=== PATIENT | male | born 1985 | race Caucasian/White ===

== ENCOUNTER 2017-03-08 03:00 | Day surgery (SDC) | payer SELFPAY ==
[2017-03-08 03:52] VITALS: BMI 25.4
[2017-03-08] MEDS ORDERED: morphine CARPU-JECT 4 MG/1 ML DISP.SYRIN IVPUSH ONE ×2 (04:38→07:23)
[2017-03-08] MEDS ORDERED: ONDANSETRON 4 MG TABLET PO ONE (04:38)
[2017-03-08] MEDS ORDERED: SODIUM CHLORIDE 1,000 ML IV STA (04:38)
--- NOTE | 2017-03-08 04:39 | PDOC ---
History of Present Illness - General Chief Complaint: Pain Stated Complaint: PAIN/LT SIDE Time Seen by Provider: 03/08/17 03:43 - History of Present Illness Initial Comments: 03/08/17 05:25 The patient is a 31 year old male with no significant PMH who presents to the emergency department with groin pain beginning at approximately 10AM. 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 The patient denies chest pain, shortness of breath, headache, and dizziness. Denies fever, chills, nausea, vomit, diarrhea, and constipation. Denies dysuria, frequency, urgency, and hematuria. Allergies: NKA Past surgical history: None reported. Social history: No reported cigarette, alcohol, or drug use. Past History - Past Medical History Allergies/Adverse Reactions: Allergies Allergy/AdvReac Type Severity Reaction Status Date / Time No Known Allergies Allergy Verified 03/08/17 03:52 Home Medications: Ambulatory Orders Acetaminophen W/ Codeine #3 [Tylenol # 3 -] 1 - 2 tab PO Q6H PRN #22 tablet MDD 8 03/09/17 Acetaminophen [Tylenol .Regular Strength -] 650 mg PO Q6H PRN #0 tablet Docusate Sodium [Colace -] 100 mg PO BID PRN #30 capsule 03/09/17 Ibuprofen [Motrin -] 600 mg PO Q6H PRN #0 tablet 03/09/17 - Suicide/Smoking/Psychosocial Hx Smoking History: Never smoked Have you smoked in the past 12 months: No Information on smoking cessation initiated: No Hx Alcohol Use: No Drug/Substance Use Hx: No Review of Systems - Review of Systems Comments:: 03/08/17 05:26 "GENERAL/CONSTITUTIONAL: No fever or chills. No weakness. HEAD, EYES, EARS, NOSE AND THROAT: No change in vision. No ear pain or discharge. No sore throat. CARDIOVASCULAR: No chest pain or shortness of breath. RESPIRATORY: No cough, wheezing, or hemoptysis. GASTROINTESTINAL: No nausea, vomiting, diarrhea or constipation. GENITOURINARY: No dysuria, frequency, or change in urination. MUSCULOSKELETAL: (+) Left side groin pain. No joint pain. No neck or back pain. SKIN: No rash NEUROLOGIC: No headache, vertigo, loss of consciousness, or change in strength/ sensation. ENDOCRINE: No increased thirst. No abnormal weight change. HEMATOLOGIC/LYMPHATIC: No anemia, easy bleeding, or history of blood clots. ALLERGIC/IMMUNOLOGIC: No hives or skin allergy. " *Physical Exam - Vital Signs Last Vital Signs Temp Pulse Resp BP Pulse Ox 97.5 F L 75 18 107/63 100 03/08/17 03:50 03/08/17 03:50 03/08/17 03:50 03/08/17 03:50 03/08/17 03:50 - Physical Exam Comments: 03/08/17 05:26 "GENERAL: Awake, alert, and fully oriented. NAD HEAD: No signs of trauma EYES: PERRLA, EOMI, sclera anicteric, conjunctiva clear ENT: Auricles normal inspection, hearing grossly normal, nares patent, oropharynx clear without exudates. Moist mucosa NECK: Normal ROM, supple, no lymphadenopathy, JVD, or masses LUNGS: Breath sounds equal, clear to auscultation bilaterally. No wheezes, and no crackles HEART: Regular rate and rhythm, normal S1 and S2, no murmurs, rubs or gallops ABDOMEN: Soft, nontender, normoactive bowel sounds. No guarding, no rebound. No masses : (+) Left inguinal hernia, tender to palpation, not reducible. Penis and scrotum with no masses, nontender EXTREMITIES: Normal range of motion, no edema. No clubbing or cyanosis. No cords, erythema, or tenderness NEUROLOGICAL: Cranial nerves II through XII grossly intact. Normal speech, normal gait SKIN: Warm, Dry, normal turgor, no rashes or lesions noted. " ED Treatment Course - LABORATORY CBC & Chemistry Diagram: 03/08/17 04:49 03/08/17 04:49 Medical Decision Making - Medical Decision Making 03/08/17 05:26 31 M with L inguinal hernia, nonreducible at bedside. Pt with no obstructive symptoms, no nausea/vomiting. Will need CT to r/o incarcerated hernia - Labs, lactate - CTAP - IVF, morphine, zofran - Surgical consult as needed *DC/Admit/Observation/Transfer Diagnosis at time of Disposition: Inguinal hernia - Discharge Dispostion Disposition: HOME Condition at time of disposition: Good - Prescriptions
[2017-03-08 05:00] LABS: BASOPHIL 0.8 % (0-2.0); EOSINOPHIL 1.6 % (0-4.5); MCH 31.7 pg (25.7-33.7); MEAN CELL VOLUME 90.4 fl (80-96); MEAN PLT VOLUME 8.3 fl (7.5-11.1); NEUTROPHILS 63.6 % (42.8-82.8); PLATELET COUNT 221 K/MM3 (134-434); RDW 13.2 % (11.9-15.9); WHITE BLOOD COUNT 7.9 K/mm3 (4.0-10.0)
[2017-03-08] MEDS ORDERED: ONDANSETRON 4 MG/2 ML VIAL ONE (05:05)
[2017-03-08] MEDS ORDERED: morphine CARPU-JECT 4 MG/1 ML DISP.SYRIN ONE ×2 (05:05→07:25)
[2017-03-08 05:27] LABS: INR 1.04 (0.82-1.09); PROTHROMBIN TIME (PATIENT) 11.4 SEC (9.98-11.88)
[2017-03-08 05:38] LABS: ALBUMIN 3.9 g/dl (3.4-5.0); ALK PHOS 102 U/L (45-117); ANION GAP 8 (8-16); BILIRUBIN,TOTAL 0.6 mg/dL (0.2-1.0); CALCIUM 8.2 mg/dL (8.5-10.1); CO2 25 mmol/L (21-32); CREATININE 0.7 mg/dL (0.7-1.3); GLUCOSE,RANDOM 103 mg/dL (74-106); SGOT/AST 17 U/L (15-37); SGPT/ALT 32 U/L (12-78)
[2017-03-08] MEDS ORDERED: morphine CARPU-JECT 2 MG/1 ML DISP.SYRIN ONE (07:25)
--- NOTE | 2017-03-08 07:31 | PDOC ---
*Physical Exam - Vital Signs Last Vital Signs Temp Pulse Resp BP Pulse Ox 97.5 F L 75 18 107/63 100 03/08/17 03:50 03/08/17 03:50 03/08/17 03:50 03/08/17 03:50 03/08/17 03:50 - Physical Exam General Appearance: Yes: Nourished Respiratory/Chest: positive: Lungs Clear, Normal Breath Sounds Cardiovascular: positive: Regular Rhythm, Regular Rate, S1, S2 Gastrointestinal/Abdominal: positive: Normal Bowel Sounds, Flat, Soft Male Genitalia: positive: normal genitalia, other (PALP INCARCERATED LEFT INGUINAL HERNIA) Musculoskeletal: positive: Normal Inspection Extremity: positive: Normal Capillary Refill, Normal Inspection <Aline Juárez - Last Filed: 03/08/17 11:32> - Vital Signs Last Vital Signs Temp Pulse Resp BP Pulse Ox 98.3 F 87 20 130/75 98 03/08/17 07:37 03/08/17 07:37 03/08/17 07:37 03/08/17 07:37 03/08/17 07:37 <Brenton Broussard - Last Filed: 03/08/17 12:07> ED Treatment Course - LABORATORY CBC & Chemistry Diagram: 03/08/17 04:49 03/08/17 04:49 - ADDITIONAL ORDERS Additional order review: Laboratory Results 03/08/17 03/08/17 03/08/17 04:49 04:49 04:49 PT with INR 11.40 INR 1.04 PTT (Actin FS) Sodium 139 Potassium 3.7 Chloride 106 Carbon Dioxide 25 Anion Gap 8 BUN 21 H Creatinine 0.7 Creat Clearance w eGFR > 60 Random Glucose 103 Lactic Acid 1.2 Calcium 8.2 L Total Bilirubin 0.6 AST 17 ALT 32 Alkaline Phosphatase 102 Total Protein 7.0 Albumin 3.9 Blood Type Antibody Screen 03/08/17 03/08/17 04:49 04:49 PT with INR INR PTT (Actin FS) 29.7 Sodium Potassium Chloride Carbon Dioxide Anion Gap BUN Creatinine Creat Clearance w eGFR Random Glucose Lactic Acid Calcium Total Bilirubin AST ALT Alkaline Phosphatase Total Protein Albumin Blood Type O POSITIVE Antibody Screen Negative 03/08/17 04:49 RBC 5.12 MCV 90.4 MCHC 35.0 RDW 13.2 MPV 8.3 Neutrophils % 63.6 Lymphocytes % 26.9 Monocytes % 7.1 Eosinophils % 1.6 Basophils % 0.8 - Medications Given in the ED: ED Medications Discontinued Medications Generic Name Dose Route Start Last Admin Trade Name Lois PRN Reason Stop Dose Admin Sodium Chloride 1,000 mls @ 1,000 mls/hr 03/08/17 04:38 03/08/17 05:14 Normal Saline - IV 03/08/17 05:37 1,000 mls/hr ASDIR STA Administration Morphine Sulfate 4 mg 03/08/17 04:38 03/08/17 05:14 Morphine Injection - IVPUSH 03/08/17 04:39 4 mg ONCE ONE Administration Ondansetron HCl 4 mg 03/08/17 04:38 03/08/17 05:14 Zofran - PO 03/08/17 04:39 4 mg ONCE ONE Administration <Aline Juárez - Last Filed: 03/08/17 11:32> - LABORATORY CBC & Chemistry Diagram: 03/08/17 04:49 03/08/17 04:49 - ADDITIONAL ORDERS Additional order review: Laboratory Results 03/08/17 03/08/17 03/08/17 04:49 04:49 04:49 PT with INR 11.40 INR 1.04 PTT (Actin FS) Sodium 139 Potassium 3.7 Chloride 106 Carbon Dioxide 25 Anion Gap 8 BUN 21 H Creatinine 0.7 Creat Clearance w eGFR > 60 Random Glucose 103 Lactic Acid 1.2 Calcium 8.2 L Total Bilirubin 0.6 AST 17 ALT 32 Alkaline Phosphatase 102 Total Protein 7.0 Albumin 3.9 Urine Color Urine Appearance Urine pH Urine Protein Urine Glucose (UA) Urine Ketones Urine Blood Urine Nitrite Urine Bilirubin Urine Urobilinogen Blood Type Antibody Screen 03/08/17 03/08/17 03/08/17 04:49 04:49 04:37 PT with INR INR PTT (Actin FS) 29.7 Sodium Potassium Chloride Carbon Dioxide Anion Gap BUN Creatinine Creat Clearance w eGFR Random Glucose Lactic Acid Calcium Total Bilirubin AST ALT Alkaline Phosphatase Total Protein Albumin Urine Color Straw Urine Appearance Clear Urine pH 6.0 Urine Protein Negative Urine Glucose (UA) Negative Urine Ketones Negative Urine Blood Negative Urine Nitrite Negative Urine Bilirubin Negative Urine Urobilinogen Negative Blood Type O POSITIVE Antibody Screen Negative 03/08/17 04:49 RBC 5.12 MCV 90.4 MCHC 35.0 RDW 13.2 MPV 8.3 Neutrophils % 63.6 Lymphocytes % 26.9 Monocytes % 7.1 Eosinophils % 1.6 Basophils % 0.8 - Medications Given in the ED: ED Medications Discontinued Medications Generic Name Dose Route Start Last Admin Trade Name Lois PRN Reason Stop Dose Admin Sodium Chloride 1,000 mls @ 1,000 mls/hr 03/08/17 04:38 03/08/17 05:14 Normal Saline - IV 03/08/17 05:37 1,000 mls/hr ASDIR STA Administration Lorazepam 1 mg 03/08/17 07:48 03/08/17 07:56 Ativan Injection - IVPUSH 03/08/17 07:49 1 mg ONCE ONE Administration Morphine Sulfate 4 mg 03/08/17 04:38 03/08/17 05:14 Morphine Injection - IVPUSH 03/08/17 04:39 4 mg ONCE ONE Administration Morphine Sulfate 6 mg 03/08/17 07:23 03/08/17 07:36 Morphine Injection - IVPUSH 03/08/17 07:24 6 mg ONCE ONE Administration Ondansetron HCl 4 mg 03/08/17 04:38 03/08/17 05:14 Zofran - PO 03/08/17 04:39 4 mg ONCE ONE Administration Sodium Chloride 1,000 ml 03/08/17 07:48 03/08/17 07:56 Normal Saline - IV 03/08/17 07:49 1,000 ml ONCE ONE Administration <Brenton Broussard - Last Filed: 03/08/17 12:07> Progress Note - Progress Note Progress Note: EXAM: ECG Vent Rate: 54 bpm IMPRESSION: Sinus bradycardia. Otherwise normal ECG. <Brenton Broussard - Last Filed: 03/08/17 12:07> Medical Decision Making - Medical Decision Making 03/08/17 07:30 31 YO male with no pmhx here with c/o left inguinal pain, noted incarcerated hernia on exam. ct pending when assume care of pt. will consult surgery. pt with pain on my examination. surgery consults. pain medication ordered. 03/08/17 10:36 Dr. Jo evaluate pt at bedside, successfully reduced. CT with fat contents only , no bowel. pt still with some pain, but improved post reduction. will admit for hernia repair. <Aline Juárez - Last Filed: 03/08/17 11:32> - Medical Decision Making 03/08/17 07:57 First call placed to Dr. Jo at 07:34. Awaiting call back. Case discussed with Dr. Jo at 07:47. <Brenton Broussard - Last Filed: 03/08/17 12:07> *DC/Admit/Observation/Transfer - Discharge Dispostion Admit: Yes <Aline Juárez - Last Filed: 03/08/17 11:32> - Attestations Scribe Attestion: 03/08/17 07:58 Documentation prepared by Brenton Broussard, acting as medical lab director for Aline Juárez MD. <Brenton Broussard - Last Filed: 03/08/17 12:07> Diagnosis at time of Disposition: Inguinal hernia
[2017-03-08] MEDS ORDERED: SODIUM CHLORIDE 0.9% 1000 ML INFUS.BAG IV ONE (07:48)
[2017-03-08 07:49] LABS: URINE APPEARANCE CLEAR; URINE BILIRUBIN NEGATIVE (NEGATIVE); URINE BLOOD NEGATIVE (NEGATIVE); URINE COLOR STRAW; URINE GLUCOSE (UA) NEGATIVE (NEGATIVE); URINE KETONE NEGATIVE (NEGATIVE); URINE LEUK ESTERASE NEGATIVE (NEGATIVE); URINE NITRITE NEGATIVE (NEGATIVE); URINE PROTEIN NEGATIVE (NEGATIVE); URINE UROBILINOGEN NEGATIVE mg/dL (0.2-1.0)
[2017-03-08] MEDS ORDERED: LORazepam 2 MG/ML SDV VIAL ONE (07:49)
--- NOTE | 2017-03-08 10:45 | HP ---
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 He came to ER early this am, where he had normal labs including lactate 1.2, and his hernia was unable to be reduced by ER doctor. CT showed omental content with some fluid, but no obstruction or intestinal content in hernia. He has been able to void and has been given fluids. No fever, but did feel cold at one point, no n/v, no d/c. No abdominal pain, last po was 9pm last night. With supine positioning, pain medicine and ativan, cold pack, hernia had reduced by the time I saw patient. He stated pain is better than yesterday but area is still painful and tender. He wants it fixed and is agreeable to surgery. 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 #[phone]) - Past Medical History Musculoskeletal: Yes: Other (left inguinal hernia) - Past Surgical History Past Surgical History: Yes: None - Smoking History Smoking history: Current some day smoker Have you smoked in the past 12 months: Yes Aproximately how many cigarettes per day: 0 (1-2 cigars/week) - Alcohol/Substance Use Hx Alcohol Use: No History of Substance Use: reports: None - Social History Occupation: works at [email or web address] Home Medications - Allergies Allergies/Adverse Reactions: Allergies Allergy/AdvReac Type Severity Reaction Status Date / Time No Known Allergies Allergy Verified 03/08/17 03:52 - Home Medications Home Medications: Ambulatory Orders NK [No Known Home Medication] 03/08/17 Family Disease History - Family Disease History Family History: Unremarkable Review of Systems - Review of Systems Constitutional: reports: Chills ("felt cold"). denies: Fever Eyes: denies: Blurred Vision, Recent Change in Vision HENT: denies: Difficult Swallowing, Throat Pain Cardiovascular: denies: Chest Pain, Palpitations Respiratory: reports: Cough (in last few days, hurts in left groin when he coughs). denies: SOB Gastrointestinal: denies: Abdominal Pain, Constipation, Diarrhea, Nausea, Vomiting Genitourinary: denies: Burning, Dysuria Musculoskeletal: denies: Back Pain, Joint Pain, Muscle Pain Integumentary: denies: Change in Color, Rash Neurological: denies: Dizziness, Headache Psychiatric: denies: Anxiety, Depression Physical Examination Vital Signs: Vital Signs Temperature 98.3 F 03/08/17 07:37 Pulse Rate 87 03/08/17 07:37 Respiratory Rate 20 03/08/17 07:37 Blood Pressure 130/75 03/08/17 07:37 O2 Sat by Pulse Oximetry (%) 98 03/08/17 07:37 Constitutional: Yes: Well Nourished, No Distress, Calm Eyes: Yes: Conjunctiva Clear, EOM Intact HENT: Yes: Atraumatic, Nasal Congestion Neck: Yes: Supple, Trachea Midline Cardiovascular: Yes: Regular Rate and Rhythm. No: Murmur Respiratory: Yes: Regular, CTA Bilaterally Gastrointestinal: Yes: Normal Bowel Sounds, Soft, Hernia (left inguinal - reduced prior to my exam with pain control, cold pack, supine positioning; tender at site and int/ext rings, testicle nontender, no content in scrotum now but + impulse with cough; no right sided impulse with cough; no skin changes), Tenderness (mild LLQ near groin, no R/G) ...Rectal Exam: Yes: Deferred Renal/: No: Bladder Distention, Scrotal Edema Musculoskeletal: No: Back Pain, Joint Swelling Extremities: No: Cool, Cyanosis Edema: No Peripheral Pulses WNL: Yes Integumentary: No: Erythema, Rash Neurological: Yes: Alert, Oriented Psychiatric: Yes: Alert, Oriented Labs: CBC, BMP 03/08/17 04:49 03/08/17 04:49 lactate 1.2 Imaging - Results Chest X-ray: Report Reviewed Cat Scan: Report Reviewed, Image Reviewed (left inguinal hernia with fat/ omental content and some fluid, normal appendix, no free air or obstruction in abdomen) Problem List - Problems (1) Inguinal hernia of left side without obstruction or gangrene Assessment/Plan: presented with incarcerated left inguinal hernia since yesterday reduced spontaneously with rest, pain control and cold pack very tender with + impulse Discussed with patient risks, benefits and alternatives of left inguinal hernia repair with mesh, including but not limited to bleeding, infection, injury to adjacent structures including vessels or nerves, vas deferens, mesh infection, testicular ischemia or loss; alternatives include delayed or no surgery - risks of this include increased pain, incarceration or strangulation of hernia, need for emergent surgery. Patient desires to proceed with operation - will take to OR for above. Informed consent signed for same. admit 23H/satellite perioperative antibiotics resume po postop pain meds prn dvt prophylaxis - early ambulation and scd's anticipate d/c home when ambulating, voiding, pain controlled with po meds, tolerating po - later tonight or in am pt understands will have lifting restrictions for 4-6 weeks postop Code(s): K40.90 - UNIL INGUINAL HERNIA, W/O OBST OR GANGR, NOT SPCF RECUR
[2017-03-08] MEDS ORDERED: SODIUM CHLORIDE 1,000 ML IV SCH (12:00)
[2017-03-08] MEDS ORDERED: ceFAZolin SODIUM 1 GM VIAL ONE (13:07)
[2017-03-08] MEDS ORDERED: PROPOFOL 20 ML ONE (13:07)
[2017-03-08] MEDS ORDERED: BUPIVACAINE HCL/PF 0.5% (5MG/ML) 10 ML VIAL ONE (13:12)
[2017-03-08] MEDS ORDERED: ceFAZolin SODIUM 1 GM VIAL IVPB ONE (13:21)
[2017-03-08] MEDS ORDERED: BUPIVACAINE HCL/PF 0.5% (5MG/ML) 10 ML VIAL IJ ONE ×2 (13:37→14:46)
[2017-03-08] MEDS ORDERED: ONDANSETRON 4 MG/2 ML VIAL IVPUSH PRN ×2 (14:24→15:43)
[2017-03-08] MEDS ORDERED: oxyCODONE HCL 5 MG TABLET PO PRN (14:24)
[2017-03-08] MEDS ORDERED: IBUPROFEN 800 MG/8 ML IJ IVPB PRN (14:24)
[2017-03-08] MEDS ORDERED: LACTATED RINGERS SOLUTION 1,000 ML IV SCH ×2 (14:30→15:43)
[2017-03-08] MEDS ORDERED: ACETAMINOPHEN 325 MG TABLET (FP) PO PRN ×2 (15:27→15:43)
[2017-03-08] MEDS ORDERED: ACETAMINOPHEN WITH CODEINE 300MG/30MG TABLET PO PRN ×2 (15:27→15:43)
--- NOTE | 2017-03-08 15:27 | OP ---
Operative Note - Note: Operative Date: 03/08/17 Pre-Operative Diagnosis: left inguinal hernia Operation: left inguinal hernia repair with mesh Findings: indirect sac and small direct component/floor weakness; sac ligated and excised ; Bard 2x4" flat mesh used with lateral slit for cord Post-Operative Diagnosis: Other (left direct and indirect (pantaloon) inguinal hernia) Surgeon: Rayray Jo Anesthesiologist/IMPREGNATOR AND DRIER: Zuleyka Paulino Anesthesia: Spinal, Local (20ml 0.5% marcaine) Specimens Removed: left inguinal hernia sac to pathology Estimated Blood Loss (mls): 15 Fluid Volume Replaced (mls): 1,200 (crystalloid) Operative Report Dictated: Yes
[2017-03-08] MEDS ORDERED: morphine CARPU-JECT 4 MG/1 ML DISP.SYRIN IVPUSH PRN ×2 (15:32→15:43)
--- NOTE | 2017-03-08 15:39 | CONSULT ---
Consult - text type - Consultation Consultation Note: Pt seen and examined in ER. Admitted satellite for OR to me. See H&P for details. Left inguinal hernia, reduced with pain control, supine position and cold pack. For repair with mesh today.
[2017-03-08] MEDS ORDERED: IBUPROFEN 800 MG/8 ML IJ IVPB ONE (17:08)
[2017-03-08] MEDS ORDERED: IBUPROFEN 600 MG TABLET (FP) PO PRN ×2 (21:00)
--- NOTE | 2017-03-09 10:21 | DS ---
Physical Examination Vital Signs: Vital Signs Temperature 100.2 F H 03/09/17 05:47 Pulse Rate 72 03/09/17 05:47 Respiratory Rate 20 03/09/17 05:47 Blood Pressure 103/56 03/09/17 05:47 O2 Sat by Pulse Oximetry (%) 100 03/08/17 21:00 Vital Signs Period Temp Pulse Resp BP Sys/Gallardo Pulse Ox Last 24 Hr 97.5 F-100.2 F 56-72 14-20 90-116/52-80 97-100 temp 98.1 at 9am Findings/Remarks: Pt seen and examined in room, ambulating and in bed. c/o pain but controlled with po meds. Better than yesterday. Tolerating diet, voided. Constitutional: Yes: Well Nourished, No Distress, Calm Cardiovascular: Yes: Regular Rate and Rhythm. No: Murmur Respiratory: Yes: Regular, CTA Bilaterally Gastrointestinal: Yes: Normal Bowel Sounds, Soft, Tenderness (LUQ and LLQ, no R/ G, + incisional tenderness) Integumentary: Yes: Incision (with dressing). No: Rash Wound/Incision: Yes: Steri Strips (under dressing), Dressing Dry and Intact Neurological: Yes: Alert, Oriented Labs: no new labs Discharge Summary Reason For Visit: INGUINAL HERNIA OF LEFT SIDE WITHOUT OBSTRUCTION Current Active Problems Inguinal hernia of left side without obstruction or gangrene (Acute) Procedures: Principal: left inguinal hernia repair with mesh Hospital Course: 31yo healthy Chencho Rodriguez presented with left inguinal hernia out for 1 day with pain and bulge, not reducible by ER but did reduce spontaneously with supine position, pain control, cold pack. CT confirmed only omentum in hernia, no obstruction. Taken to OR for repair with mesh same day. Postoperatively, he has done well, tolerating diet, ambulating, voiding, and with pain controlled with oral meds. Dressing is C/D/I. He will be d/c home with lifting restrictions to f /u in 2 weeks. He is also referred to a PMD. Time spent on discharge: 35 minutes Condition: Good - Instructions Diet, Activity, Other Instructions: Postoperative instructions: You had a left inguinal hernia repair with mesh on by Dr. Rayray Jo of [facility]. Activity: Resume your usual activities gradually, but no heavy exertion or lifting more than 10-15 pounds for 4-6 weeks. Remove dressings 2 days after surgery, if they are not already off. You may shower daily starting then, just pat the incision areas dry, but no bath or swimming until the incision is healed. Sticky tapes will fall off by themselves in a week or two. Eat lightly at first, but advance to your usual diet as tolerated. Pain: For pain, you may use and alternate Tylenol (acetaminophen) and/or ibuprofen every 6 hours each as needed; this means that you can take one OR the other at 3-hour intervals. If you take Tylenol #3 (with codeine), use it instead of plain Tylenol as needed and switch back when your pain starts decreasing. Do not take more than 3000mg of acetaminophen in a day. Take medications as prescribed or indicated on the labeling. Follow-up: Call Dr. Jo's office at [phone] to make your postop appointment (Saturday 2 weeks after surgery). Clinic is held in the [facility] on the first floor of [facility]. Call the office if you have: * increasing pain not responsive to pain medication * fever of 101F or higher * vomiting * unusual or increasing bleeding or drainage from wounds * increasing redness or swelling at wound sites * inability to urinate Also, you have been referred to a primary medical doctor - call for an appointment with Dr. Sexton within 1-2 weeks. Referrals: Ricky Sexton MD [Staff Physician] - Disposition: HOME - Home Medications Comprehensive Discharge Medication List: Ambulatory Orders NK [No Known Home Medication] 03/08/17 Home Medications Medication Instructions Recorded Acetaminophen W/ Codeine #3 1 - 2 tab PO Q6H PRN #22 tablet 03/09/17 [Tylenol # 3 -] MDD 8 Acetaminophen [Tylenol .Regular 650 mg PO Q6H PRN #0 tablet 03/09/17 Strength -] Docusate Sodium [Colace -] 100 mg PO BID PRN #30 capsule 03/09/17 Ibuprofen [Motrin -] 600 mg PO Q6H PRN #0 tablet 03/09/17
[2017-03-09 10:42] VITALS: BP 107/59; PULSE 64; TEMP 98.1
--- NOTE | 2017-03-10 20:17 | OP ---
DATE OF OPERATION: 03/08/2017 PREOPERATIVE DIAGNOSIS: Left inguinal hernia. POSTOPERATIVE DIAGNOSIS: Left direct and indirect inguinal hernias (pantaloon hernia). PROCEDURE PERFORMED: Left inguinal hernia repair with mesh. SURGEON: Rayray Jo MD ANESTHESIA: Spinal and local 20 mL of 0.5% Marcaine. ESTIMATED BLOOD LOSS: 15 mL. FLUIDS: 1200 mL of crystalloid. SPECIMEN: Left inguinal hernia sac to Pathology. FINDINGS: An indirect sac, which was ligated and excised; a small direct component of the hernia/weakness of the inguinal floor, and a Bard 2 x 4-inch flat mesh used for repair with a lateral slit for the cord. DISPOSITION: Stable and awake to PACU. INDICATIONS FOR PROCEDURE: The patient is a 31-year-old [place] male with a history of a left inguinal hernia for the last 2 years. He had been relatively asymptomatic up until the previous day at work. While lifting boxes, he felt pain in the left groin, which persisted and got worse throughout the day, associated with a bulge that would not go back in. On presentation to the emergency room, he had normal labs, including a lactate of 1.2, but his hernia was unable to be reduced by the ER physician. CT showed omental content with some fluid but no obstruction and no intestines in the hernia. He had been able to void and was given fluids. With supine positioning, pain medicine, and a small dose of Ativan, as well as a cold pack, the hernia had reduced spontaneously prior to surgical exam. Risks, benefits, and alternatives of left inguinal hernia repair with mesh were discussed with the patient, including but not limited to bleeding, infection, injury to adjacent structures, mesh infection, testicular ischemia or loss; the patient desires to proceed with the operation, and he has signed informed consent for the procedure. OPERATIVE TECHNIQUE: The patient was brought to the operating room, and sequential compression devices were applied to bilateral lower extremities. 1 g of Ancef was given as preoperative antibiotic. The patient was provided with spinal anesthesia by the anesthesiologist, after which he was laid supine, and his left groin and suprapubic area were clipped of hair, prepped and draped in sterile fashion. Anesthesia of the intended incisional area was confirmed prior to incision. The hernia had remained reduced. An oblique incision was made with a scalpel from over the external ring directed toward the anterior superior iliac spine. This was carried into subcutaneous tissues with electrocautery until the external oblique fascia was identified and cleared bluntly on its surface. A self-retaining retractor was placed. The external oblique fascia was nicked with a scalpel and opened with scissors through the external ring and for a short distance superiorly. Clamps were placed on the leaves of the external oblique, which was then cleared bluntly on its internal surfaces, revealing the inguinal ligament laterally, and the lateral edge of the rectus muscle medially. Ilioinguinal nerve was noted under the edge of the fascia, which was initially placed outside the field. Later, the decision was made to sacrifice the nerve, and it was divided with cautery at both ends. The hernia and cord contents were bluntly lifted off the pubic tubercle manually, and a Brewster drain passed around the structures. Hemostasis was achieved throughout the procedure with electrocautery as needed. Dissection was then undertaken to identify an indirect hernia sac, which was identified and carefully from the cord contents. The vas deferens was identified and noted to be intact and avoided for the remainder of the procedure. There was also noted to be weakness of the inguinal floor and a bulge representing a small direct hernia component as well. Once the sac had been fully isolated and dissected from the cord structures, it was held up with clamps and opened with scissors. There was no content noted in the sac although some peritoneal fluid was visualized, and as the patient moved, a very small portion of omentum was noted to float up into the very bottom. Ensuring that there was no content in the sac, it was twisted, clamped and ligated with a 2-0 Vicryl suture ligature, and the distal sac excised and sent for pathology specimen. The stump was reduced through the internal ring. A piece of 2 x 4-inch Bard flat mesh was then selected for repair. Three corners were trimmed and it was placed into position with the superior edge underlying the external oblique fascia. A very small slit was cut laterally for the cord to pass through, and it was secured in place with interrupted 2-0 Prolene sutures, beginning with an anchor stitch at the pubic tubercle, and securing it to the inguinal ligament laterally. A single stitch fixed the mesh to itself around the cord, and medially the mesh was secured to the lateral edge of the rectus muscle. Once the mesh had been secured, adequate room for the cord was ensured where it passed through, and the field was irrigated and suctioned clear. There was no significant bleeding noted. A few small spots of oozing on the fatty tissues were cauterized. Local anesthetic was infiltrated at this time, and an ilioinguinal block also performed. The external oblique fascia was reapproximated with a running 2-0 Vicryl suture beginning superiorly and ending at the level of the cord. The field was again irrigated and suctioned clear. Hemostasis was noted, and Kem's fascia was approximated at several points with 3-0 Vicryl sutures. A few subdermal 3-0 Vicryl sutures were also taken to approximate the subcutaneous tissues, and the skin was closed with a running 4-0 Vicryl subcuticular suture. Some additional local was infiltrated into the skin and subcutaneous tissues. Benzoin and Steri-Strips were applied over the incision and a dressing of gauze and Tegaderm placed over this. Counts were correct at the end of the procedure. Once the drapes were removed, the patient's testicles were both gently pulled down and ensured to be in the scrotum. The patient was then moved back to a stretcher and taken to the recovery room awake, in stable condition, having tolerated the procedure well. Katie [id number] MTDD
--- NOTE | 2017-03-12 14:18 | PATH ---
Surgical Pathology Report Patient Name: ESTRELLA HEARN [facility]. Rec. #: [id number] /Age/Gender: 1985 (Age: 31) / M Account: [id number] Location: AMBULATORY SURG Taken: 03/08/2017 Received: 03/11/2017 Reported: 03/12/2017 Physicians: Rayray Jo M.D. Specimen(s) Received LEFT HERNIA SAC Clinical History Left inguinal hernia Final Diagnosis HERNIA SAC, LEFT, INGUINAL HERNIA REPAIR: BENIGN FOCALLY MESOTHELIAL LINED FIBROMEMBRANOUS TISSUE CONSISTENT WITH HERNIA SAC. Electronically Signed Triston Carter M.D. Gross Description Received in formalin, labeled "left hernia sac" is a 3.5 x 2.5 x 1.8 cm fragment of lugo-castillo fibromembranous tissue. Organ Tuner section is submitted in one cassette. AF/03/11/2017 final/03/11/2017
--- NOTE | 2017-03-12 20:16 | EKG ---
Test Reason : Blood Pressure : / mmHG Vent. Rate : 054 BPM Atrial Rate : 054 BPM P-R Int : 162 ms QRS Dur : 088 ms QT Int : 398 ms P-R-T Axes : 039 -21 011 degrees QTc Int : 377 ms SINUS BRADYCARDIA OTHERWISE NORMAL ECG NO PREVIOUS ECGS AVAILABLE REPEAT EKG IF CLINICALLY INDICATED Confirmed by GWEN DE PAZ MD ([id number] on 03/12/2017 8:15:54 PM Referred By: Confirmed By:GWEN DE PAZ MD
== END 2017-03-09 11:55 | disposition home or self-care (01) ==
LOC: JER 03:00 → JASUSAT 11:28 → J8W 17:45 → JASUSAT 03-09 11:55
PROVIDERS: ATTEND Surgery
PROC: 0YU60JZ Supplement Left Inguinal Region with Synthetic Substitute, Open Approach (ICD-10-PCS; principal; 2017-03-08 12:45)
DX: K40.90 Unilateral inguinal hernia, without obstruction or gangrene, not specified as recurrent (principal)
CPT/HCPCS: 36415; 71010-TC; 74177-TC; 80053; 81003; 83605; 85025; 85610; 85730; 86850; 86900; 86901; 88302-TC; 93005; 93010; 94760; 99285-25